=== PATIENT | male | born 1970 | race Asian ===

== ENCOUNTER 2020-01-22 21:33 | Emergency (ER) | payer OTHER ==
[~2020-01-22] VITALS: Ht 160 cm; Wt 81.8 kg
[2020-01-22] MEDS ORDERED: MORPHINE SULFATE 2 MG/ML VIAL. IV/SQ PRN (21:45)
--- NOTE | 2020-01-22 21:48 | PHYS DOC ---
Past Medical History Past Medical History: No Pertinent History, GERD, Hypertension Past Surgical History: No Surgical History Smoking Status: Never Smoker Alcohol Use: None Drug Use: None Adult General Chief Complaint Chief Complaint: CHEST PAIN-CARDIAC NATURE HPI HPI Patient is a 49 year old male with a history of hypertension, acid reflux, who presents today complaining of 10 out of 10 right-sided chest pain described as sharp and constant, symptoms began this morning. Patient reports trying "acid medicine" with no relief. Denies any fever, coughing, congestion. Denies anything specifically exacerbating or relieving the pain. Denies any pain radiating to the upper extremities or neck. Son interpreted for Wol[place] though patient appears conversant with Slov[place] Review of Systems Review of Systems Constitutional: Denies fever or chills [] Eyes: Denies change in visual acuity, redness, or eye pain [] HENT: Denies nasal congestion or sore throat [] Respiratory: Denies cough or shortness of breath [] Cardiovascular: Reports right-sided chest pain GI: Denies abdominal pain, nausea, vomiting, bloody stools or diarrhea [] : Denies dysuria or hematuria [] Musculoskeletal: Denies back pain or joint pain [] Integument: Denies rash or skin lesions [] Neurologic: Denies headache, focal weakness or sensory changes [] All other systems were reviewed and found to be within normal limits, except as documented in this note. Current Medications Current Medications Current Medications Medications (Trade) Dose Ordered Sig/Aakash Start Time Stop Time Status Last Admin Dose Admin Aspirin (Kemal Aspirin) 325 mg 1X ONCE 01/22/20 22:00 01/22/20 22:01 DC 01/22/20 22:01 325 MG Famotidine (Pepcid Vial) 20 mg 1X ONCE 01/22/20 22:00 01/22/20 22:01 DC 01/22/20 22:02 20 MG Magnesium Sulfate/ Dextrose 100 ml @ 100 mls/hr 1X ONCE 01/22/20 22:45 01/22/20 23:44 Cancel Morphine Sulfate (Morphine Sulfate) 2 mg PRN Q15MIN PRN 01/22/20 21:45 01/23/20 21:44 01/22/20 22:01 2 MG Multi-Ingredient Mouthwash/Gargle (Gi Cocktail) 20 ml 1X ONCE 01/22/20 22:00 01/22/20 22:01 DC 01/22/20 22:00 20 ML Nitroglycerin (Nitrostat) 0.4 mg PRN Q5MIN PRN 01/22/20 21:45 01/23/20 21:44 01/22/20 22:09 0.4 MG Allergies Allergies Allergies Coded Allergies Type Severity Reaction Last Updated Verified No Known Drug Allergies 12/17/15 No Physical Exam Physical Exam Constitutional: Well developed, well nourished, no acute distress, non-toxic appearance. [] HENT: Normocephalic, atraumatic, bilateral external ears normal, oropharynx moist, no oral exudates, nose normal. [] Eyes: PERRLA, EOMI, conjunctiva normal, no discharge. [] Neck: Normal range of motion, no tenderness, supple, no stridor. [] Cardiovascular: Reproducible right upper chest pain on palpation. Heart rate regular rhythm, no murmur [] Lungs & Thorax: Bilateral breath sounds clear to auscultation [] Abdomen: Bowel sounds normal, soft, no tenderness, no masses, no pulsatile masses. [] Skin: Warm, dry, no erythema, no rash. [] Back: No tenderness, no CVA tenderness. [] Extremities: No tenderness, no cyanosis, no clubbing, ROM intact, no edema. [] Neurologic: Alert and oriented X 3, normal motor function, normal sensory function, no focal deficits noted. [] Psychologic: Affect normal, judgement normal, mood normal. [] Current Patient Data Vital Signs Vital Signs Date Time Temp Pulse Resp B/P (MAP) Pulse Ox O2 Delivery O2 Flow Rate FiO2 01/22/20 22:30 18 01/22/20 22:09 18 114/70 01/22/20 22:08 96 Room Air 01/22/20 21:44 97.9 97.9 Lab Values Laboratory Tests Test 01/22/20 21:40 01/22/20 21:58 White Blood Count 7.7 x10^3/uL (4.0-11.0) Red Blood Count 5.26 x10^6/uL (4.30-5.70) Hemoglobin 14.8 g/dL (13.0-17.5) Hematocrit 44.5 % (39.0-53.0) Mean Corpuscular Volume 85 fL (79-100) Mean Corpuscular Hemoglobin 28 pg (25-35) Mean Corpuscular Hemoglobin Concent 33 g/dL (31-37) Red Cell Distribution Width 13.9 % (11.5-14.5) Platelet Count 164 x10^3/uL (140-400) Neutrophils (%) (Auto) 56 % (31-73) Lymphocytes (%) (Auto) 28 % (24-48) Monocytes (%) (Auto) 14 % (0-9) H Eosinophils (%) (Auto) 1 % (0-3) Basophils (%) (Auto) 0 % (0-3) Neutrophils # (Auto) 4.4 x10^3/uL (1.8-7.7) Lymphocytes # (Auto) 2.2 x10^3/uL (1.0-4.8) Monocytes # (Auto) 1.1 x10^3/uL (0.0-1.1) Eosinophils # (Auto) 0.1 x10^3/uL (0.0-0.7) Basophils # (Auto) 0.0 x10^3/uL (0.0-0.2) Sodium Level 140 mmol/L (136-145) Potassium Level 3.7 mmol/L (3.5-5.1) Chloride Level 103 mmol/L (98-107) Carbon Dioxide Level 29 mmol/L (21-32) Anion Gap 8 (6-14) Blood Urea Nitrogen 14 mg/dL (8-26) Creatinine 1.4 mg/dL (0.7-1.3) H Estimated GFR (Cockcroft-Gault) 54.3 BUN/Creatinine Ratio 10 (6-20) Glucose Level 270 mg/dL (70-99) H Calcium Level 9.0 mg/dL (8.5-10.1) Magnesium Level 1.6 mg/dL (1.8-2.4) L Total Bilirubin 0.6 mg/dL (0.2-1.0) Aspartate Amino Transferase (AST) 22 U/L (15-37) Alanine Aminotransferase (ALT) 55 U/L (16-63) Alkaline Phosphatase 114 U/L (46-116) Creatine Kinase 85 U/L (39-308) Creatine Kinase MB (Mass) < 0.5 ng/mL (0.0-3.6) Creatine Kinase MB Relative Index % (0-4) Troponin I Quantitative < 0.017 ng/mL (0.000-0.055) GQ-Hvh-I-Type Natriuretic Peptide 48 pg/mL (0-124) Total Protein 7.3 g/dL (6.4-8.2) Albumin 3.4 g/dL (3.4-5.0) Albumin/Globulin Ratio 0.9 (1.0-1.7) L Thyroid Stimulating Hormone (TSH) 3.234 uIU/mL (0.358-3.74) Urine Collection Type Unknown Urine Color Yellow Urine Clarity Clear Urine pH 6.0 (<5.0-8.0) Urine Specific [place] 1.025 (1.000-1.030) Urine Protein Negative mg/dL (NEG-TRACE) Urine Glucose (UA) >=1000 mg/dL (NEG) Urine Ketones (Stick) Negative mg/dL (NEG) Urine Blood Negative (NEG) Urine Nitrite Negative (NEG) Urine Bilirubin Negative (NEG) Urine Urobilinogen Dipstick 1.0 mg/dL (0.2 mg/dL) Urine Leukocyte Esterase Negative (NEG) Urine RBC 1-2 /HPF (0-2) Urine WBC 0 /HPF (0-4) Urine Squamous Epithelial Cells Few /LPF Urine Bacteria 0 /HPF (0-FEW) Urine Mucus Slight /LPF Urine Opiates Screen Neg (NEG) Urine Methadone Screen Neg (NEG) Urine Barbiturates Neg (NEG) Urine Phencyclidine Screen Neg (NEG) Urine Amphetamine/Methamphetamine Neg (NEG) Urine Benzodiazepines Screen Neg (NEG) Urine Cocaine Screen Neg (NEG) Urine Cannabinoids Screen Neg (NEG) Urine Ethyl Alcohol Neg (NEG) Laboratory Tests 01/22/20 21:40 Laboratory Tests 01/22/20 21:40 EKG EKG [address] Del Cid sinus rhythm HR 78 no STEMI[] Radiology/Procedures Radiology/Procedures []PROCEDURE: PORTABLE CHEST 1V Single view chest dated 01/22/2020: No comparison available. Clinical Indication: Chest pain. Findings: Single upright portable exam performed. Heart and mediastinal contours are stable. Lungs are hypoinflated, limiting evaluation. No consolidation or pleural effusion. No pneumothorax. Impression: Limited exam. No apparent acute abnormality. Electronically signed by: Gaurav Massey MD (01/22/2020 10:20 PM) [id number] DICTATED and SIGNED BY: GAURAV MASSEY MD DATE: 01/22/202219 Course & Med Decision Making Course & Med Decision Making Pertinent Labs and Imaging studies reviewed. (See chart for details) This is a 49-year-old male patient presenting to the ED today complaining of right-sided chest pain that began this morning. EKG is negative, chest x-ray is negative, troponin is normal, CBC with no acute findings, CMP with glucose of 270 denies any hx of DM. Mag 1.6, K is normal. Heart score 2 Nursing staff informs me patient and son were asking if patient could have COVID19 testing apparently that was one of his goals for today's visit. I went to talk to them. Patient has no risk factors, has not traveled outside the [facility] region, does not have a cough or fever. Has not been in contact with anyone with COVID19. Gave patient and sone outpatient follow-up information if he desires to have the test. Discharged to home. Provided cardiology. Patient also has a PCP. Candi Disclaimer Candi Disclaimer This electronic medical record was generated, in whole or in part, using a voice recognition dictation system. The HEART Score for CP Pts HEART Score for Chest Pain: HEART Score for Chest Pain Response (Comments) Value History Slighlty/Non-Suspicious 0 ECG Normal 0 Age >45 - < 65 1 Risk Factors 1 or 2 Risk Factors 1 Troponin < Normal Limit 0 Total 2 Risk Factors: Risk Factors: DM, Current or recent (<one month) smoker, HTN, HLP, family history of CAD, obesity. Risk Scores: Score 0 - 3: 2.5% MACE over next 6 weeks - Discharge Home Score 4 - 6: 20.3% MACE over next 6 weeks - Admit for Clinical Observation Score 7 - 10: 72.7% MACE over next 6 weeks - Early Invasive Strategies Departure Departure Impression: Primary Impression: Chest pain Additional Impression: Hyperglycemia Disposition: HOME, SELF-CARE Condition: STABLE Referrals: NO PCP (PCP) VEE SANDERS MD Follow-up with your primary care doctor or the provided collections clerk in the course of this week Patient Instructions: Chest Pain (Nonspecific), Diet for Gastroesophageal Reflux Disease, Adult Additional Instructions: Your work-up in the emergency room was negative for any acute findings. Please follow-up with your own primary care doctor as well as the provided collections clerk in the course of this week. You can follow-up with the health department if you desire to have [place] testing. Scripts Famotidine (FAMOTIDINE) 20 Mg Tablet 20 MG PO DAILY, #30 TAB Prov: CHRISTINE MARLOW APRN 01/22/20 Problem Qualifiers Primary Impression: Chest pain Chest pain type: unspecified Qualified Codes: R07.9 - Chest pain, unspecified CHRISTINE MARLOW APRN Jan 22, 2020 21:48
[2020-01-22 21:53] LABS: BASO % 0 % (0-3); EOS # 0.1 x10^3/uL (0.0-0.7); EOS % 1 % (0-3); HEMATOCRIT 44.5 % (39.0-53.0); HEMOGLOBIN 14.8 g/dL (13.0-17.5); LYMPH # 2.2 x10^3/uL (1.0-4.8); LYMPH % 28 % (24-48); MEAN CORPUSCULAR HEMOGLOBIN 28 pg (25-35); MEAN CORPUSCULAR HGB CONC 33 g/dL (31-37); MEAN CORPUSCULAR VOLUME 85 fL (79-100); MONO # 1.1 x10^3/uL (0.0-1.1); MONO % 14 % (0-9); NEUT # 4.4 x10^3/uL (1.8-7.7); NEUT % 56 % (31-73); PLATELET COUNT 164 x10^3/uL (140-400); RED BLOOD COUNT 5.26 x10^6/uL (4.30-5.70); RED CELL DISTRIBUTION WIDTH 13.9 % (11.5-14.5); WHITE BLOOD COUNT 7.7 x10^3/uL (4.0-11.0)
[2020-01-22] MEDS ORDERED: FAMOTIDINE 20 MG/2 ML VIAL IVP ONE (22:00)
[2020-01-22] MEDS ORDERED: LIDO:MAALOX 1:1 20 ML SINGLE DOSE. SWSW ONE (22:00)
[2020-01-22] MEDS ORDERED: ASPIRIN 325 MG TABLET PO ONE (22:00)
[2020-01-22] MEDS: NITROGLYCERIN SUBLINGUAL 0.4 MG BOTTLE OF 25. SL PRN ×2 (22:03→22:09)
[2020-01-22 22:07] LABS: CREATININE 1.4 mg/dL (0.7-1.3); GFR 54.3; POTASSIUM 3.7 mmol/L (3.5-5.1)
[2020-01-22 22:12] LABS: ALBUMIN 3.4 g/dL (3.4-5.0); ALBUMIN/GLOBULIN RATIO 0.9 (1.0-1.7); MAGNESIUM 1.6 mg/dL (1.8-2.4); TOTAL BILIRUBIN 0.6 mg/dL (0.2-1.0); TOTAL PROTEIN 7.3 g/dL (6.4-8.2)
[2020-01-22 22:15] LABS: BILIRUBIN,URINE NEGATIVE (NEG); CLARITY,URINE CLEAR; COLOR,URINE YELLOW; NITRITE,URINE NEGATIVE (NEG); PROTEIN,URINE NEGATIVE (NEG-TRACE)
[2020-01-22 22:21] LABS: BARBITURATES NEG (NEG); BENZODIAZEPINES NEG (NEG); CANNABINOIDS NEG (NEG); COCAINE NEG (NEG); METHADONE NEG (NEG); OPIATES NEG (NEG); PHENCYCLIDINE NEG (NEG); SQUAMOUS EPITHELIAL CELL,UR FEW /LPF
[2020-01-22 22:22] LABS: BACTERIA,URINE 0 /HPF (0-FEW); WBC,URINE 0 /HPF (0-4)
[2020-01-22 22:23] LABS: AMPHETAMINE/METHAMPHETAMINE NEG (NEG)
--- NOTE | 2020-01-22 22:23 | RAD ---
Single view chest dated 01/22/2020: No comparison available. Clinical Indication: Chest pain. Findings: Single upright portable exam performed. Heart and mediastinal contours are stable. Lungs are hypoinflated, limiting evaluation. No consolidation or pleural effusion. No pneumothorax. Impression: Limited exam. No apparent acute abnormality. Electronically signed by: Gaurav Massey MD (01/22/2020 10:20 PM) [id number]
[2020-01-22 22:25] LABS: CREATINE KINASE 85 U/L (39-308)
[2020-01-22] MEDS ORDERED: MAGNESIUM SULFATE 1GM 100 ML IV ONE (22:45)
[2020-01-22] MEDS ORDERED: FAMO20TA5 PO (23:02)
[2020-01-22 23:22] VITALS: BP 116/73
--- NOTE | 2020-01-23 06:11 | EKG ---
[facility] [address] [place] [address] Test Date: 2020-01-22 Test Time: 21:42:19 Pat Name: MILDRED SAMSON Department: Room: Gender: Stylist Apprentice: : 1970 Requested By: CHRISTINE MARLOW Order Number: [id number] Reading MD: Measurements Intervals [place] Rate: 78 P: 28 ID: [id number] QRS: 27 QRSD: 94 T: 9 QT: 344 QTc: 395 Interpretive Statements SINUS RHYTHM NORMAL ECG RI6.01 No previous ECG available for comparison
== END 2020-01-22 23:22 | disposition home or self-care (01) ==
LOC: ER 21:33
DX: R07.89 Other chest pain (principal); R73.9 Hyperglycemia, unspecified; K21.9 Gastro-esophageal reflux disease without esophagitis; I10 Essential (primary) hypertension; Z79.82 Long term (current) use of aspirin
CPT/HCPCS: 36415; 71045; 80053; 80307; 81001; 82553; 83735; 83880; 84443; 84484; 85025; 93005; 96374; 96375; 99285; J2270; J3490